=== PATIENT | female | born 1965 | race Caucasian/White ===

== ENCOUNTER 2020-03-13 14:14 | Outpatient (CLI) | payer OTHER, SELFPAY ==
--- NOTE | ~2020-03-13 | MM_ITS ---
EXAMINATION: MM screening cassandra BI w graham HISTORY: Screening mammogram TECHNIQUE: Craniocaudal and mediolateral oblique 3-D tomosynthesis images were obtained and synthetic 2-D images were generated. CAD analysis was submitted and interpreted. COMPARISON: 03/12/2017 diagnostic left digital mammogram and limited left breast ultrasound 03/04/2017, 04/16/2014 bilateral digital screening mammogram examinations BREAST PARENCHYMAL COMPOSITION: The breasts are heterogeneously dense, which may obscure small masses . FINDINGS: Previously reported 4 mm irregular mass in the posterior third of the upper outer quadrant of the left breast on 03/04/2017 and 03/20/2017 is no longer identified. There is history of interval left partial mastectomy and radiation treatment. There is no evidence of suspicious mass, calcification, or architectural distortion to suggest malign rosalba in either breast. There has been no suspicious interval change. IMPRESSION: 1. No mammographic evidence of malignancy. 2. Recommend routine screening mammography in one year. BI-RADS Category 1: Negative Reviewed, dictated and finalized at location A. ORMANCE ANALYST
== END 2020-03-13 14:15 | disposition home or self-care (01) ==
LOC: ANHIMG 14:26
PROVIDERS: PCP Nurse Practitioner Adult Health; Visit Provider Obstetrics & Gynecology
DX: Z12.31 Encounter for screening mammogram for malignant neoplasm of breast (principal)
CPT/HCPCS: 77063; 77067

== ENCOUNTER 2020-03-28 06:54 | Outpatient (NON) | payer OTHER, SELFPAY ==
[2020-03-28 19:42] LABS: SARS-CoV-2 RNA PCR Negative
== END 2020-03-28 06:55 ==
LOC: ANHCOVIDDT 06:56
PROVIDERS: PCP Nurse Practitioner Adult Health; Visit Provider Nurse Practitioner Adult Health
DX: Z20.822 Contact with and (suspected) exposure to COVID-19 (principal); R09.81 Nasal congestion
CPT/HCPCS: C9803; U0003

== ENCOUNTER → 2021-02-09 02:42 | Outpatient (CLI) | payer OTHER, SELFPAY ==
[2021-02-09 16:36] LABS: SARS-CoV-2 RNA PCR Negative
== END ==
PROVIDERS: PCP Nurse Practitioner Adult Health; Visit Provider Nurse Practitioner Adult Health
DX: R05.9 Cough, unspecified (principal); Z20.822 Contact with and (suspected) exposure to COVID-19
CPT/HCPCS: C9803; U0003; U0005

== ENCOUNTER 2021-04-12 14:11 | Outpatient (CLI) | payer OTHER, SELFPAY ==
--- NOTE | ~2021-04-12 | MM_ITS ---
EXAMINATION: MM screening cassandra BI w graham HISTORY: Screening TECHNIQUE: Craniocaudal and mediolateral oblique 3-D tomosynthesis images were obtained and synthetic 2-D images were generated. CAD analysis was submitted and interpreted. COMPARISON: Comparison to multiple prior studies sequentially, with oldest reviewed study dated 01/22. BREAST PARENCHYMAL COMPOSITION: The breasts are heterogeneously dense, which may obscure small masses . FINDINGS: There is no evidence of suspicious mass, calcification, or architectural distortion to sugg est malignancy in either breast. There has been no suspicious interval change. IMPRESSION: 1. No mammographic evidence of malignancy. 2. Recommend routine screening mammography in one year. BI-RADS Category 1: Negative Reviewed, dictated and finalized at location A. CULTURAL CONSULTANT
== END 2021-04-12 14:12 | disposition home or self-care (01) ==
LOC: ANHIMG 14:15
PROVIDERS: PCP Nurse Practitioner Adult Health; Visit Provider Obstetrics & Gynecology
DX: Z12.31 Encounter for screening mammogram for malignant neoplasm of breast (principal)
CPT/HCPCS: 77063; 77067

== ENCOUNTER 2022-04-19 09:55 | Outpatient (CLI) | payer OTHER, SELFPAY ==
--- NOTE | ~2022-04-19 | MM_ITS ---
EXAMINATION: MM screening cassandra BI w graham HISTORY: Screening TECHNIQUE: Craniocaudal and mediolateral oblique 3-D tomosynthesis images were obtained and synthetic 2-D images were generated. CAD analysis was submitted and interpreted. COMPARISON: Comparison to multiple prior studies sequentially, with oldest reviewed study dated 04/16. BREAST PARENCHYMAL COMPOSITION: There are scattered areas of fibroglandular density. FINDINGS: There is no evidence of suspicious mass, calcification, or architectural distortion to sugg est malignancy in either breast. There has been no suspicious interval change. IMPRESSION: 1. No mammographic evidence of malignancy. 2. Recommend routine screening mammography in one year. BI-RADS Category 1: Negative Reviewed, dictated and finalized at location A. N STOCK WASHER
== END 2022-04-19 09:56 | disposition home or self-care (01) ==
LOC: ANHIMG 10:00
PROVIDERS: PCP Nurse Practitioner Family; Visit Provider Internal Medicine Medical Oncology
DX: Z12.31 Encounter for screening mammogram for malignant neoplasm of breast (principal)
CPT/HCPCS: 77063; 77067

== ENCOUNTER 2023-01-10 17:05 | Emergency (ER) | payer OTHER, SELFPAY ==
[2023-01-10 17:12] VITALS: BP 163/98; PULSE 93; RESP 18; TEMP 36.2; O2SAT 97
[2023-01-10 17:32] LABS: Basophils Absolute Auto 0.1 K/mm3 (0.0-0.1); Basophils Percent Auto 0.7 % (0.2-1.2); Eosinophils Absolute Auto 0.1 K/mm3 (0-0.3); Eosinophils Percent Auto 1.2 % (0-4.4); Hematocrit 42.2 % (37.0-47.0); Hemoglobin 14.1 g/dL (12.0-15.0); Immature Granulocyte Absolute 0.04 K/mm3 (0.00-0.031); Immature Granulocyte Percent A 0.4 % (0-0.5); Lymphocytes Percent Auto 32.3 % (18.3-44.2); Mean Corpuscular HGB Conc 33.4 g/dl (32-36); Mean Corpuscular Hemoglobin 30.3 pg (26-34); Mean Corpuscular Volume 90.8 fl (80-100); Mean Platelet Volume 10.2 fl (7.4-10.4); Monocytes Absolute Auto 0.6 K/mm3 (0.1-0.6); Monocytes Percent Auto 6.3 % (2.6-8.5); Neutrophils Absolute Auto 5.3 K/mm3 (1.3-6.7); Neutrophils Percent Auto 59.1 % (45.5-73.1); Platelet Count Result 256 k/mm3 (150-375); Red Blood Count 4.65 M/mm3 (4.2-5.4); Red Cell Distribution Width 12.8 % (11.5-14.5)
[2023-01-10 17:44] LABS: Alanine Aminotransferase 23 U/L (6-35); Albumin Level 4.8 g/dL (3.5-5.1); Alkaline Phosphatase 83 U/L (38-126); Anion Gap 8 mmol/L (8-16); Aspartate Amino Transferase 27 U/L (14-36); Bilirubin,Total 1.7 mg/dL (0.2-1.3); Blood Urea Nitrogen 17 mg/dL (7-17); Carbon Dioxide 23 mmol/L (22-30); Chloride 107 mmol/L (98-107); Estimated CRCL calculation 70 ml/min; Estimated Glomerular Filt Rate > 60; Glucose 102 mg/dL (65-110); Lipase 79 U/L (23-300); Potassium 3.9 mmol/L (3.4-5.0); Sodium 138 mmol/L (137-145)
--- NOTE | 2023-01-10 23:04 | ED.GENADULT ---
HPI - General Adult General Chief complaint: Abdominal Pain Stated complaint: diverticulitis Time Seen by Provider: 01/10/23 22:45 History of Present Illness HPI narrative: Patient 57-year-old female who presents the emergency department with chief complaint of left lower quadrant abdominal pain. Patient reports she has prior history of diverticulitis reports that she has had surgery for this before and reports that she has had episodes since her surgery. The patient reports that she started having discomfort in the left lower quadrant and reports that this feels exactly like her previous episodes. The patient reports she called her primary care doctor trying to get treatments but they had changed and the patient subsequently was recommended to come to the emergency department. Related Data Home Medications Medication Instructions Recorded Confirmed aspirin 81 mg tablet,delayed 81 mg PO DAILY 10/07/22 10/07/22 release calcium carbonate 600 mg calcium 600 mg PO DAILY 10/07/22 10/07/22 (1,500 mg) tablet (Calcium) cholecalciferol (vitamin D3) 50 50 mcg PO DAILY 10/07/22 10/07/22 mcg (2,000 unit) capsule d-mannose 500 mg capsule mg PO 10/07/22 10/07/22 fluticasone propionate 50 1 spray intranasal DAILY 10/07/22 10/07/22 mcg/actuation nasal spray,suspension (Allergy Relief (fluticasone)) rosuvastatin 20 mg tablet 20 mg PO DAILY 10/07/22 10/07/22 Allergies Allergy/AdvReac Type Severity Reaction Status Date / Time adhesive tape Allergy Severe RASH Verified 01/10/23 23:02 tetracycline Allergy Unknown Unknown Verified 01/10/23 23:02 amoxicillin AdvReac Severe Nausea and Verified 01/10/23 23:02 Vomiting clavulanic acid AdvReac Severe Nausea and Verified 01/10/23 23:02 Vomiting MINOCYCLINE HCL Allergy Severe HIVES AND Uncoded 01/10/23 23:02 SOB Review of Systems Review of Systems: A 10 system review of systems was completed on the patient and is negative except for what is stated in the HPI. Nursing and ancillary documentation was reviewed. [facility] Past Medical History Medical History Allergies Anxiety CAD (coronary artery disease) Cancer Diverticulosis Encounter to establish care Frequent UTI Hx of breast cancer Hyperlipidemia PVC (premature ventricular contraction) Tobacco abuse Vitamin D deficiency Family History Family History Father Asthma Diabetes mellitus Hypertension Heart disease Mother Alcoholism Asthma Hypertension Heart disease Thyroid disorder Sibling Alcoholism Asthma Heart disease Hypertension Anxiety Depression Thyroid disorder Grandparent Heart disease Social History Social History Smoking status: Light tobacco smoker Tobacco type: cigarettes Alcohol intake: never Substance use: never Substance use type: does not use Current Housing: Decline to Answer Concerned About Future Housing: Decline to Answer Difficulty Paying Gas/Electric Bills: Decline to Answer Difficulty Paying for Meds: Decline to Answer Currently Unemployed: Decline to Answer Education: Decline to Answer Difficulty w/ Childcare or Family Care: Decline to Answer Exam Narrative: GENERAL: Well-appearing, well-nourished, and in no acute distress. HEAD: Normocephalic, atraumatic. EYES: PERRLA and EOMI. ENT: Nares clear, no rhinorrhea or epistaxis. Mucous membranes moist. NECK: Supple. CHEST: Clear to auscultation. No respiratory distress. HEART: Regular rate and rhythm. No murmur heard. Normal peripheral pulses. ABDOMEN: Soft, mild tenderness to palpation the left lower quadrant, nondistended, normal active bowel sounds. EXTREMITIES: Normal range of motion. No edema. SKIN: Warm, dry, no rash. NEURO: No focal deficits. Alert and oriented x3. PSYCH: Janice
[2023-01-10] MEDS: CIPROFLOXACIN 500 MG TAB PO (23:12)
[2023-01-10] MEDS: metroNIDAZOLE 250 MG TABLET 500 MG PO (23:12)
[2023-01-10] MEDS: KETOROLAC 30 MG/ML VIAL (*BKC) IM (23:12)
== END 2023-01-10 23:19 | disposition home or self-care (01) ==
PROVIDERS: Emergency Medicine; Emergency Provider Emergency Medicine; PCP Nurse Practitioner Family
DX: K57.92 Diverticulitis of intestine, part unspecified, without perforation or abscess without bleeding (principal); I25.10 Atherosclerotic heart disease of native coronary artery without angina pectoris; E78.5 Hyperlipidemia, unspecified; F17.200 Nicotine dependence, unspecified, uncomplicated; Z85.3 Personal history of malignant neoplasm of breast
CPT/HCPCS: 36415; 80053; 83690; 85025; 96372; 99283; A9270; J1885

== ENCOUNTER 2023-01-20 10:45 | Emergency (ER) | payer OTHER, SELFPAY ==
[2023-01-20] VITALS (9 sets, daily range): BP systolic 132–158; BP diastolic 64–83; PULSE 78–91; RESP 12–24; TEMP 36.4; O2SAT 94–100
--- NOTE | ~2023-01-20 | CT_ITS ---
EXAMINATION: CT abdomen pelvis w con DATE: 01/20/2023 13:38 INDICATION: Left lower quadrant abdominal pain. TECHNIQUE: Computed tomography (CT) of the abdomen and pelvis was performed with 100 mL Omnipaque 350 intravenous contrast. Automated exposure control and iterative reconstruction technique were employe d. The dose-length product was 332.30 mGy-cm. COMPARISON: CT abdomen and pelvis 01/07/2018 FINDINGS: The visualized portions of the lung bases demonstrate mild atelectasis. No pleural effusion . The heart size is normal. No pericardial effusion. The liver is normal. Calcifications in the splee n are consistent with old granulomatous disease. There are changes of cholecystectomy. The pancreas, adrenal glands, and right kidney are normal. There is a 5 mm cyst in left kidney. There is diverticul osis of the colon without evidence of diverticulitis. There are no dilated loops of bowel. The append ix is normal. There are no pathologically enlarged lymph nodes. There is no free intraperitoneal flui d. Aortic atherosclerosis is noted. There is moderate thoracic and lumbar spondylosis. IMPRESSION: 1. No etiology for the patient's symptoms. Reviewed, dictated and finalized at location E.
[2023-01-20 11:17] LABS: Basophils Absolute Auto 0.1 K/mm3 (0.0-0.1); Basophils Percent Auto 0.5 % (0.2-1.2); Eosinophils Absolute Auto 0.1 K/mm3 (0-0.3); Eosinophils Percent Auto 0.4 % (0-4.4); Hematocrit 43.4 % (37.0-47.0); Hemoglobin 14.2 g/dL (12.0-15.0); Immature Granulocyte Absolute 0.06 K/mm3 (0.00-0.031); Immature Granulocyte Percent A 0.5 % (0-0.5); Lymphocytes Absolute Auto 2.46 K/mm3 (0.9-3.2); Lymphocytes Percent Auto 20.7 % (18.3-44.2); Mean Corpuscular HGB Conc 32.7 g/dl (32-36); Mean Corpuscular Hemoglobin 30.7 pg (26-34); Mean Corpuscular Volume 93.7 fl (80-100); Mean Platelet Volume 10.5 fl (7.4-10.4); Monocytes Absolute Auto 0.5 K/mm3 (0.1-0.6); Monocytes Percent Auto 4.3 % (2.6-8.5); Neutrophils Absolute Auto 8.7 K/mm3 (1.3-6.7); Neutrophils Percent Auto 73.6 % (45.5-73.1); Platelet Count Result 254 k/mm3 (150-375); Red Blood Count 4.63 M/mm3 (4.2-5.4); White Blood Count 11.9 K/mm3 (4.5-10.0)
[2023-01-20 11:32] LABS: Alanine Aminotransferase 33 U/L (6-35); Albumin Level 4.4 g/dL (3.5-5.1); Alkaline Phosphatase 73 U/L (38-126); Anion Gap 5 mmol/L (8-16); Aspartate Amino Transferase 39 U/L (14-36); Blood Urea Nitrogen 12 mg/dL (7-17); Calcium 8.9 mg/dL (8.4-10.2); Carbon Dioxide 24 mmol/L (22-30); Chloride 108 mmol/L (98-107); Estimated CRCL calculation 62 ml/min; Estimated Glomerular Filt Rate > 60; Glucose 109 mg/dL (65-110); Lipase 61 U/L (23-300); Potassium 3.9 mmol/L (3.4-5.0); Sodium 137 mmol/L (137-145)
[2023-01-20 11:58] LABS: Appearance Urine Clear (Clear); Bacteria Urine None Seen /hpf; Bilirubin Urine Negative (Negative); Blood Urine Trace (Negative); Color Urine Yellow (Yellow); Glucose Urine UA Negative (Negative); Ketones Urine Negative (Negative); Leukocyte Esterase Ur 1+ LEU/UL (Negative); Nitrate Urine Negative (Negative); Non Pathogenic Casts 0-2; Protein Urine Negative (Negative); Specific Grav Ur 1.018 (1.001-1.035); Squamous Epithelial Cell Urine Few /hpf (Few); Urobilinogen Urine 0.2 mg/dL (<2.0); WBC Urine 0-5 /hpf; pH Urine 5.5 (5.0-9.0)
[2023-01-20 12:00] LABS: Add Urine Microscopic? YES
--- NOTE | 2023-01-20 12:11 | ED.ABDPAIN ---
HPI - Abdominal Pain General Chief Complaint: Abdominal Pain Stated Complaint: abd pain Time Seen by Provider: 01/20/23 12:06 Source: patient Mode of arrival: ambulatory History of Present Illness HPI narrative: 57 years old white female drove herself to the emergency room complaining of left lower quadrant pain started 10 days ago and gradually getting better. Came to our emergency room at that time and was diagnosed with diverticulitis. Patient could not do CAT scan at that time. Patient reports intermittent nausea. She denies any fever, chills, vomiting, diarrhea, constipation. Patient denies aggravating or relieving factors. Related Data Home Medications Medication Instructions Recorded Confirmed aspirin 81 mg tablet,delayed 81 mg PO DAILY 10/07/22 10/07/22 release calcium carbonate 600 mg calcium 600 mg PO DAILY 10/07/22 10/07/22 (1,500 mg) tablet (Calcium) cholecalciferol (vitamin D3) 50 50 mcg PO DAILY 10/07/22 10/07/22 mcg (2,000 unit) capsule d-mannose 500 mg capsule mg PO 10/07/22 10/07/22 fluticasone propionate 50 1 spray intranasal DAILY 10/07/22 10/07/22 mcg/actuation nasal spray,suspension (Allergy Relief (fluticasone)) rosuvastatin 20 mg tablet 20 mg PO DAILY 10/07/22 10/07/22 Allergies Allergy/AdvReac Type Severity Reaction Status Date / Time adhesive tape Allergy Severe RASH Verified 01/20/23 11:41 minocycline Allergy Severe Hives and Verified 01/20/23 12:46 SOB tetracycline Allergy Unknown Unknown Verified 01/20/23 11:41 amoxicillin AdvReac Severe Nausea and Verified 01/20/23 11:41 Vomiting clavulanic acid AdvReac Severe Nausea and Verified 01/20/23 11:41 Vomiting Review of Systems Review of Systems: All systems reviewed & are unremarkable except as noted in HPI and below PMFSH Past Medical History Medical History Allergies Anxiety CAD (coronary artery disease) Cancer Diverticulosis Encounter to establish care Frequent UTI Hx of breast cancer Hyperlipidemia PVC (premature ventricular contraction) Tobacco abuse Vitamin D deficiency Family History Family History Father Asthma Diabetes mellitus Hypertension Heart disease Mother Alcoholism Asthma Hypertension Heart disease Thyroid disorder Sibling Alcoholism Asthma Heart disease Hypertension Anxiety Depression Thyroid disorder Grandparent Heart disease Social History Social History Smoking status: Light tobacco smoker Tobacco type: cigarettes Alcohol intake: never Substance use: never Substance use type: does not use Current Housing: Decline to Answer Concerned About Future Housing: Decline to Answer Difficulty Paying Gas/Electric Bills: Decline to Answer Difficulty Paying for Meds: Decline to Answer Currently Unemployed: Decline to Answer Education: Decline to Answer Difficulty w/ Childcare or Family Care: Decline to Answer Exam Narrative: General appearance: Well-developed, well-nourished Skin: Normal color Head: Normocephalic, nontraumatic Eyes: Clear conjunctiva ENT: Oropharynx normal, ears normal, nose normal Neck: Supple, nontender Chest and respiratory: Airway patent, no respiratory distress, no accessory muscle use Heart: Regular rate/rhythm Abdomen: Soft, mild tenderness left lower quadrant,, no organomegaly, quiet bowel sounds Vascular: Normal peripheral pulses, normal capillary refill. Musculoskeletal: Normal range of motion, nontender back Neurologic: Alert and oriented ?3, MODEL AND DYE PERSON is normal as tested, no gross motor deficit
[2023-01-20] MEDS: SODIUM CHLORIDE 0.9% IV 1,000 ML 999 ML IV CONT (13:08)
[2023-01-20 13:31] LABS: Need Manual Microscopic Reviewed
== END 2023-01-20 14:54 | disposition home or self-care (01) ==
PROVIDERS: Preventive Medicine Aerospace Medicine; Emergency Provider Emergency Medicine; PCP Nurse Practitioner Family
DX: R10.32 Left lower quadrant pain (principal); I25.10 Atherosclerotic heart disease of native coronary artery without angina pectoris; E78.5 Hyperlipidemia, unspecified; E55.9 Vitamin D deficiency, unspecified; F41.9 Anxiety disorder, unspecified; Z85.3 Personal history of malignant neoplasm of breast; F17.210 Nicotine dependence, cigarettes, uncomplicated; Z79.82 Long term (current) use of aspirin
CPT/HCPCS: 36415; 74177; 80053; 81001; 83690; 85025; 96360; 96361; 99284; J7030; Q9967

== ENCOUNTER 2023-04-21 09:51 | Outpatient (CLI) | payer OTHER, SELFPAY ==
--- NOTE | ~2023-04-21 | MM_ITS ---
EXAMINATION: MM screening cassandra BI w graham HISTORY: Screening TECHNIQUE: Craniocaudal and mediolateral oblique 3-D tomosynthesis images were obtained and synthetic 2-D images were generated. CAD analysis was submitted and interpreted. COMPARISON: Comparison to multiple prior studies sequentially, with oldest reviewed study dated 04/16. BREAST PARENCHYMAL COMPOSITION: The breasts are heterogeneously dense, which may obscure small masses FINDINGS: There is no evidence of suspicious mass, calcification, or architectural distortion to sugg est malignancy in either breast. There has been no suspicious interval change. IMPRESSION: 1. No mammographic evidence of malignancy. 2. Recommend routine screening mammography in one year. BI-RADS Category 1: Negative Reviewed, dictated and finalized at location A. ETCHER
== END 2023-04-21 09:52 | disposition home or self-care (01) ==
LOC: ANHIMG 09:54
PROVIDERS: PCP Nurse Practitioner Family; Visit Provider Obstetrics & Gynecology
DX: Z12.31 Encounter for screening mammogram for malignant neoplasm of breast (principal)
CPT/HCPCS: 77063; 77067

== ENCOUNTER 2023-05-26 00:18 | Day surgery (SDC) | payer OTHER, SELFPAY ==
[2023-03-19 13:15] VITALS: BMI 25.7
--- NOTE | 2023-04-14 09:46 | SUR.PREOP ---
Patient called regarding upcoming procedure. Message left on pt's voicemail regarding appointment times.
[2023-05-06 11:41] VITALS: BMI 25.7
--- NOTE | 2023-05-23 12:48 | SUR.PREOP ---
Patient called regarding upcoming procedure. Reviewed preop instructions, appointment times, and procedure prep.
[2023-05-26 09:24] VITALS: BP 120/75; PULSE 88; RESP 18; TEMP 36.1; O2SAT 98
[2023-05-26] MEDS: LACTATED RINGERS 1,000 ML 150 ML IV CONT (09:40)
--- NOTE | 2023-05-26 10:01 | WPDANESEPPF ---
Anes - Initial Pre Proc Eval Procedure: Operation Date: 05/26/23 10:30 Proposed Procedures p Screening Colonoscopy - Marvin Giron MD Date/Time: 05/26/23 10:01 Surgeon: Marvin Giron MD Pre Op Diagnosis: neoplasm screening Patient Data Age: 57 Gender: F Height: 1.6 m Weight: 65.9 kg Last Vital Signs Temp 97 F L 05/26/23 09:24 Pulse 88 05/26/23 09:24 Resp 18 05/26/23 09:24 BP 120/75 05/26/23 09:24 Pulse Ox 98 05/26/23 09:24 O2 Del Method Room Air 05/26/23 09:24 Allergies Allergy/AdvReac Type Severity Reaction Status Date / Time adhesive tape Allergy Severe RASH Verified 05/26/23 09:22 minocycline Allergy Severe Hives and Verified 05/26/23 09:22 SOB tetracycline Allergy Unknown Unknown Verified 05/26/23 09:22 amoxicillin AdvReac Severe Nausea and Verified 05/26/23 09:22 Vomiting clavulanic acid AdvReac Severe Nausea and Verified 05/26/23 09:22 Vomiting Home Medications Medication Instructions Recorded Confirmed Type aspirin 81 mg tablet,delayed 81 mg PO DAILY 10/07/22 05/06/23 History release calcium carbonate 600 mg calcium 600 mg PO DAILY 10/07/22 05/06/23 History (1,500 mg) tablet (Calcium) cholecalciferol (vitamin D3) 50 50 mcg PO DAILY 10/07/22 05/06/23 History mcg (2,000 unit) capsule rosuvastatin 20 mg tablet 20 mg PO DAILY 10/07/22 05/06/23 History clotrimazole 10 mg bobby 10 mg mucous membrane .5x/day #70 03/28/23 05/06/23 Rx tabs fluticasone propionate 50 1 spray intranasal BID #16 grams 04/07/23 05/06/23 Rx mcg/actuation nasal spray,suspension (Allergy Relief (fluticasone)) Patient hx anesthesia problems: none Family hx anesthesia problems: none Results Review: All pre-operative results and documents have been reviewed as part of the pre-operative evaluation. [facility] Past Medical History Medical History (Updated 01/23/23 @ 16:30 by Amalia Gunn NP) Allergies Anxiety CAD (coronary artery disease) Cancer Diverticulosis Encounter to establish care Frequent UTI Hx of breast cancer Hyperlipidemia PVC (premature ventricular contraction) Thrush, oral Tobacco abuse Vitamin D deficiency Family History Family History Father Asthma Diabetes mellitus Hypertension Heart disease Mother Alcoholism Asthma Hypertension Heart disease Thyroid disorder Sibling Alcoholism Asthma Heart disease Hypertension Anxiety Depression Thyroid disorder Grandparent Heart disease Social History Social History (Updated 04/07/23 @ 10:55 by Jennifer Reid MA) Smoking status: Light tobacco smoker Tobacco type: cigarettes Alcohol intake: never Substance use: never Substance use type: does not use Current Housing: Decline to Answer Concerned About Future Housing: Decline to Answer Difficulty Paying Gas/Electric Bills: Decline to Answer Difficulty Paying for Meds: Decline to Answer Currently Unemployed: Decline to Answer Education: Decline to Answer Difficulty w/ Childcare or Family Care: Decline to Answer Living arrangements: with family Spiritual care concerns: No Anes - Eval Final PreProcedure Day of Procedure 05/26/23 10:01 Patient weight: normal Heart: regular rate and rhythm Lungs: clear to auscultation Airway: Mallampati scale class II Neurological: alert and oriented Last oral intake: >/= 8 hours ASA classification: III Emergent: no Anesthetic plan: proceed Anesthesia type and monitoring: general GIVS and standard monitoring Results Review: All pre-operative results and documents have been reviewed as part of the pre-operative evaluation. Informed Consent: The patient's anesthetic plan and its attendant risks and benefits were discussed with the patient/family/POA. Questions were solicited and answers provided to the satisfaction of the patient/family/POA.
--- NOTE | 2023-05-26 10:08 | PM.HPGS ---
History of Present Illness History of Present Illness Consent: Risks, benefits, and alternatives have been discussed and questions answered. Patient agrees to proceed with procedure. Chief complaint: neoplasm screening Narrative: Carolyn Mann is a 57 year old female here for colonoscopy, last one 2010, also had colon surgery after diverticulitis Review of Systems Constitutional: Constitutional: Denies headache(s) and Denies weakness Eyes: Eyes: Denies blurry vision ENT: Reports Normal hearing present, Denies headache(s) and Denies neck pain Cardiovascular: Cardiovascular: Denies chest pain and Denies dyspnea Respiratory: Respiratory: Denies dyspnea Gastrointestinal: Gastrointestinal: Reports no additional gastrointestinal complaints Genitourinary: Genitourinary: Denies dysuria Musculoskeletal: Musculoskeletal: Denies neck pain Integumentary/Breasts: Skin/Breast: Denies dry skin Neurologic: Reports Normal hearing present, Denies headache(s) and Denies weakness Psychiatric: Psychiatric: Denies anxiety Endocrine: Endocrine: Denies change in body appearance Hematologic/Lymphatic: Hematologic/Lymphatic: Denies easy bleeding Allergic/Immunologic: Allergic/Immunologic: Denies urticaria PMFSH Past Medical History Medical History (Updated 05/26/23 @ 10:09 by Marvin Giron MD) Allergies Anxiety CAD (coronary artery disease) Cancer Colon cancer screening Diverticulosis Encounter to establish care Frequent UTI Hx of breast cancer Hyperlipidemia PVC (premature ventricular contraction) Thrush, oral Tobacco abuse Vitamin D deficiency Family History Family History Father Asthma Diabetes mellitus Hypertension Heart disease Mother Alcoholism Asthma Hypertension Heart disease Thyroid disorder Sibling Alcoholism Asthma Heart disease Hypertension Anxiety Depression Thyroid disorder Grandparent Heart disease Social History Social History (Updated 04/07/23 @ 10:55 by Jennifer Reid MA) Smoking status: Light tobacco smoker Tobacco type: cigarettes Alcohol intake: never Substance use: never Substance use type: does not use Current Housing: Decline to Answer Concerned About Future Housing: Decline to Answer Difficulty Paying Gas/Electric Bills: Decline to Answer Difficulty Paying for Meds: Decline to Answer Currently Unemployed: Decline to Answer Education: Decline to Answer Difficulty w/ Childcare or Family Care: Decline to Answer Living arrangements: with family Spiritual care concerns: No Meds Home Medications and Allergies Home Medications Medication Instructions Recorded Confirmed Type aspirin 81 mg tablet,delayed 81 mg PO DAILY 10/07/22 05/06/23 History release calcium carbonate 600 mg calcium 600 mg PO DAILY 10/07/22 05/06/23 History (1,500 mg) tablet (Calcium) cholecalciferol (vitamin D3) 50 50 mcg PO DAILY 10/07/22 05/06/23 History mcg (2,000 unit) capsule rosuvastatin 20 mg tablet 20 mg PO DAILY 10/07/22 05/06/23 History clotrimazole 10 mg bobby 10 mg mucous membrane .5x/day #70 03/28/23 05/06/23 Rx tabs fluticasone propionate 50 1 spray intranasal BID #16 grams 04/07/23 05/06/23 Rx mcg/actuation nasal spray,suspension (Allergy Relief (fluticasone)) Allergies Allergy/AdvReac Type Severity Reaction Status Date / Time adhesive tape Allergy Severe RASH Verified 05/26/23 09:22 minocycline Allergy Severe Hives and Verified 05/26/23 09:22 SOB tetracycline Allergy Unknown Unknown Verified 05/26/23 09:22 amoxicillin AdvReac Severe Nausea and Verified 05/26/23 09:22 Vomiting clavulanic acid AdvReac Severe Nausea and Verified 05/26/23 09:22 Vomiting Vital Signs Vital Signs - 24 hr 05/26/23 09:24 Temperature 97 F L Pulse Rate 88 Respiratory Rate 18 Blood Pressure 120/75 Pulse Oximetry 98 Oxygen Delivery Room Air
[2023-05-26 10:27] VITALS: BP 108/69; PULSE 74; RESP 20; O2SAT 96
[2023-05-26 10:37] VITALS: BP 140/89; PULSE 72; RESP 18; O2SAT 99
[2023-05-26 10:47] VITALS: BP 144/85; PULSE 73; RESP 14; O2SAT 99
== END 2023-05-26 10:57 | disposition home or self-care (01) ==
PROVIDERS: PCP Nurse Practitioner Family; Visit Provider Internal Medicine Gastroenterology
PROC: 0DJD8ZZ Inspection of Lower Intestinal Tract, Via Natural or Artificial Opening Endoscopic (ICD-10-PCS; CPT 45378; principal; 2023-05-26 10:30)
DX: Z12.11 Encounter for screening for malignant neoplasm of colon (principal); D12.2 Benign neoplasm of ascending colon; K64.8 Other hemorrhoids; K57.30 Diverticulosis of large intestine without perforation or abscess without bleeding; E78.5 Hyperlipidemia, unspecified; F41.9 Anxiety disorder, unspecified; E55.9 Vitamin D deficiency, unspecified; F17.210 Nicotine dependence, cigarettes, uncomplicated; Z86.79 Personal history of other diseases of the circulatory system; Z85.3 Personal history of malignant neoplasm of breast; Z82.49 Family history of ischemic heart disease and other diseases of the circulatory system; Z79.82 Long term (current) use of aspirin
CPT/HCPCS: 45385; 88305; J2704; J7120

== ENCOUNTER 2024-06-18 07:04 | Outpatient (CLI) | payer OTHER, SELFPAY ==
--- NOTE | ~2024-06-18 | MM_ITS ---
EXAMINATION: MM screening [facility] HISTORY: Screening TECHNIQUE: Craniocaudal and mediolateral oblique 3-D tomosynthesis images were obtained and synthetic 2-D images were generated. CAD analysis was submitted and interpreted. COMPARISON: 04/21/2023 and dating back to 03/13/2020 BREAST PARENCHYMAL COMPOSITION: The breasts are heterogeneously dense, which may obscure small masses . FINDINGS: Punctate calcifications are detected bilaterally, stable and benign in appearance. Stable parenchymal pattern without suspicious microcalcifications, architectural distortion, discrete masses or significant asymmetry. IMPRESSION: 1. No mammographic evidence of malignancy. 2. Recommend routine screening mammography in one year. BI-RADS Category 2: Benign finding(s). Reviewed, dictated and finalized at location A.
--- OUTSIDE RECORDS SUMMARY | 2024-06-18 07:11 | XMS_ITS | Referral Summary ---
Author Organization [facility] [address] Address [address] [place] [address] Care Team Providers Care Newsperson Name Role Phone Aft, Latrice Marcum MD PhD Unavailable Maury Garcia MD Unavailable [phone] Tiffanie Wooten REPLENISHMENT ANALYST Unavailable [phone] Amalia Gunn NP Primary Care Provider [phone] Allergies Active Allergy Reactions Criticality Noted Date Comments Amoxicillin Vomiting Low 06/26/2017 Amoxicillin-Pot Clavulanate Vomiting Low 03/12/20 19 Cetirizine Unknown 03/12/2019 Minocycline Hives,Shortness of breath High 8 Medications fluticasone (FLONASE) 50 mcg/actuation nasal spray Administer 1 spray into each nostril 2 (two) times a day Active calcium carbonate (CALCIUM 600 ORAL) Take 1,200 mg by mouth daily. Active cholecalciferol (VITAMIN D-3) 2,000 unit capsule Take 1 capsule (2,000 Units total) by mouth daily Active aspirin (ADULT LOW DOSE ASPIRIN) 81 mg tablet Take 1 tablet (81 mg total) by mouth daily. 8 Active rosuvastatin (CRESTOR) 20 mg tablet Take 1 tablet (20 mg total) by mouth daily 90 tablet 3 4 Active Active Problems Problem Noted Date Diagnosed Date Anxiety disorder 10/14/2019 Diverticular disease 10/14/2019 Mixed hyperlipidemia 10/14/2019 Seasonal allergies 10/14/2019 Shoulder joint pain 10/14/2019 Coronary artery disease invo lving kashia coronary artery of kashia heart without angina pectoris 05/06/2018 History of breast cancer 03/12/2018 Osteoporosis 02/23/2018 Osteopenia of multiple sites 01/09/2018 Abnormal stress test 01/02/2018 VILLAR (dyspnea on exertion) 12/11/2017 Breast skin changes 08/04/2017 Malignant neoplasm of upper- outer quadrant of left breast in female, estrogen receptor positive 07/16/2017 Cancer Staging:Pathologic stage from 05/22/2017:Stage IA(pT1a(2), pN0(sn), cM0, G2, ER: Positive, [place]: Positive, HER2: Negative) - Signed by Valdez Stauffer MD on 01/11/2018 Clinical: Unsigned Pathologic: Unsigned assisted (current) use of aromatase inhibitors 07/16/2017 Palpitations 06/26/2017 Tachycardia 06/26/2017 Symptomatic PVCs 06/26/2017 Smoker 06/26/2017 Allergic rhinitis 05/09/2017 Invasive carcinoma of breast 04/08/2017 Resolved Problems Problem Noted Date Diagnosed Date Resolved Date Dyslipidemia 06/26/2017 05/24/2021 Immunizations Immunization Administration Dates Next Due Influenza, Quadrivalent, Bushra l Culture-based MDCK, Preservative Free, Antibiotic Free, Intramuscular 04/13/2021,01/15/2019 Influenza, Quadrivalent, Spl it, Intramuscular 04/08/2017,02/13/2015 Influenza, Quadrivalent, Spl it, Preservative Free, Intramuscular 03/27/2020,02/23/2018,04/09/2017 Influenza, Trivalent, IM (MDV) 01/26/2014 Influenza, Trivalent, Preser vative Free, Intramuscular 01/04/2013 Influenza, Unspecified 04/11/2017 Pneumococcal Conjugate PCV 13 04/20/2015 Pneumococcal Conjugate, Unspecified 01/10/2016 Pneumococcal Polysaccharide PPV23 07/03/2015 Social History Tobacco Use Types Packs/Day Years Used Date Smoking Tobacco: Some Days Cigarettes Last attempted to quit: 2018 Smokeless Tobacco: Never Tobacco Cessation:Ready to Q uit: Yes; Counseling Given: Not Answered Alcohol Use Standard Drinks/Week Comments No 0 (1 standard drink = 0.6 oz pur e alcohol) Personal Safety Answer Date Recorded Getting School Help Needed Not on file 04/03 Comments No Sex and Gender Information Value Date Recorded Sex Assigned at Not on file Legal Sex Female 12:01 PM CHILD STUDY TEAM DIRECTOR Gender Identity Not on file Sexual Orientation Not on file Last Filed Vital Signs Vital Sign Reading Time Taken Comments Blood Pressure 110/70 06/16/2023 7:50 AM CDT Pulse 100 06/16/2023 7:50 AM CDT Temperature 37.1 C (98.8 F) 04/30/2022 10:13 AM CHILD STUDY TEAM DIRECTOR Respiratory Rate 16 04/30/2022 10:13 AM CHILD STUDY TEAM DIRECTOR Oxygen Saturation 95% 06/16/2023 7:50 AM CDT Inhaled Oxygen Concentration - - Weight 67.8 kg (149 lb 6.4 oz) 06/16/2023 7:50 A M CDT Height 160 cm (5' 3 ) 06/16/2023 7:50 AM CDT Body Mass Index 26.47 06/16/2023 7:50 AM CDT Plan of Treatment Not on file Medical Devices Implanted Type Area Superintendent Drivers Device Identifier Shelf Expiration Date Model / Serial / Lot Titanium Neck Plate-10/14/2012 Implanted:10/14 (Quantity not on file) Cervical-Mery mbar Spine Titanium Left Foot Screws- 8 Implanted:10/14 (Quantity not on file) Left: Foot Procedures Procedure Name Priority Date/Time Associated Diagnosis Comments DIAGNOSTIC MAMMOGRAM BILATERAL W GAURANG Schedule Routine, Read Routine (OP Routine) 03/12/2019 10:35 AM CHILD STUDY TEAM DIRECTOR Encounter for screening for malignant neoplasm of breast from Last 3 Months or Most Recently Relevant to Health Maintenance Results * Diagnostic Mammogram Bilateral W Gaurang (03/12/2019 10:35 AM CHILD STUDY TEAM DIRECTOR) Anatomical Region Laterality Modality Breast Bilateral Mammography 03/12/2019 11:4 5 AM CHILD STUDY TEAM DIRECTOR Impressions 03/12/2019 12:12 PM CHILD STUDY TEAM DIRECTOR No suspicious abnormality in either breast. Annual diagnostic mammogram is recommended. OVERALL FINAL ASSESSMENT: BI-RADS Category 2: Benign. Annual diagnostic mammography is recommended. Dictated by: Meir Sharad Perfecto, M.D. The radiology attending physician has personally reviewed this study, and had reviewed and/or edited this written report and agrees with it. Electronically signed by: BEVERLY DEY MD Narrative 03/12/2019 12:12 PM CHILD STUDY TEAM DIRECTOR EXAMINATION: BILATERAL DIGITAL DIAGNOSTIC MAMMOGRAM INCLUDING CAD AND BILATERAL DIGITAL BREAST TOMOSYNTHESIS HISTORY: 53-year-old female with multifocal invasive ductal carcinoma status post partial left mastectomy 05/22/2017 with adjuvant radiation and hormone therapy. COMPARISON: 03/11/2018 TECHNIQUE: Full field digital mammographic views of BOTH breasts were performed, including computer aided detection (CAD) and BILATERAL digital breast tomosynthesis (DBT). BREAST PARENCHYMAL COMPOSITION: The breasts are extremely dense, which lowers the sensitivity of mammography. MAMMOGRAM FINDINGS: Post breast conservation therapy changes are noted in the left breast. There is no suspicious abnormality in the right breast. Procedure Note Beverly Dey MD - 03/12/2019 EXAMINATION: BILATERAL DIGITAL DIAGNOSTIC MAMMOGRAM INCLUDING CAD AND BILATERAL DIGITAL BREAST TOMOSYNTHESIS HISTORY: 53-year-old female with multifocal invasive ductal carcinoma status post partial left mastectomy 05/22/2017 with adjuvant radiation and hormone therapy. COMPARISON: 03/11/2018 TECHNIQUE: Full field digital mammographic views of BOTH breasts were performed, including computer aided detection (CAD) and BILATERAL digital breast tomosynthesis (DBT). BREAST PARENCHYMAL COMPOSITION: The breasts are extremely dense, which lowers the sensitivity of mammography. MAMMOGRAM FINDINGS: Post breast conservation therapy changes are noted in the left breast. There is no suspicious abnormality in the right breast. IMPRESSION: No suspicious abnormality in either breast. Annual diagnostic mammogram is recommended. OVERALL FINAL ASSESSMENT: BI-RADS Category 2: Benign. Annual diagnostic mammography is recommended. Dictated by: Meir Grove M.D. The radiology attending physician has personally reviewed this study, and had reviewed and/or edited this written report and agrees with it. Electronically signed by: BEVERLY DEY MD Vandana Bonner NITROGLYCERIN NEUTRALIZER IMG MAMMO PROCEDURES Final R esult from Last 3 Months or Most Recently Relevant to Health Maintenance Insurance [facility] Care Teams Newsperson Relationship Specialty Start Date End Date Amalia Gunn NP [address] [address] PCP - General Family Medicine 06/16/23 Aft, Latrice Marcum MD PhD [address] [facility] [address] [place] [address] Surgeon Surgical Oncology 01/11/18 Maury Garcia MD [address] [facility] [address] [facility] [address] [place] [address] Consulting Physician Obstetrics and Gynecology 10/15/19 Tiffanie Wooten NP [facility] [address] Nurse Practitioner Medical Oncology 11/29/21
--- OUTSIDE RECORDS SUMMARY | 2024-06-18 07:11 | XMS_ITS | Encounter Summary ---
Author Organization [facility] Address [facility]ly [facility], [facility] [place] [address] Care Team Providers Care Corporate Counselor Name Role Phone Shanika Simon [facility] Primary Care Provider + Gerardo Mayorga MD Unavailable [phone] Non-Staff, Provider Primary Care Provider Tray vidales Encounter Details Date Type Department Care Team (Late st Contact Info) Description 05/06/2022 Stichert Message Enc [facility] Medical [facility] Family & Internal Medicine [address] [address] Shanika Simon [address] [address] Covid Social History Tobacco Use Types Packs/Day Years Used Date Smoking Tobacco: Former Cigarettes 0.3 25 Smokeless Tobacco: Never Comments:Has patch Alcohol Use Standard Drinks/Week Comments Never 0 (1 standard drink = 0.6 oz pur e alcohol) AUDIT-C Answer Date Recorded Frequency of Alcohol Consumption Never 06/07/2019 Average Number of Drinks Not on file 020 Frequency of Binge Drinking Not on file 05/22 PHQ-2 Answer Date Recorded Patient Health Questionnaire-2 Score 0 05/02/2022 Comments No Sex and Gender Information Value Date Recorded Sex Assigned at Not on file Legal Sex Female 4:20 PM CDT Gender Identity Not on file Sexual Orientation Not on file COVID-19 Exposure Response Date Recorded In the last 10 days, have yo u been in contact with someone who was confirmed or suspected to have Coronavirus/COVID-19? No / Unsure 05/02/2022 1:29 PM BLASTING CONTRACT MAN documented as of this encounter Progress Notes * ALEJANDRINA Rodarte - 05/15/2022 11:38 AM CST Please see below. TING CONTRACT MAN * Megan Almendarez MA - 05/06/2022 10:13 AM CST Ok to extend her work note? TING CONTRACT MAN documented in this encounter Plan of Treatment Not on file documented as of this encounter Visit Diagnoses Not on filedocumented in this encounter Care Teams Corporate Counselor Relationship Specialty Start Date End Date Shanika Simon FNP-BC PCP - General Nurse Practitioner Family 04/16/22 Non-Staff, Provider PCP - General UNKNOWN PHYSICIAN SPECIALTY 01/04/23 Gerardo Mayorga MD [address] [place] [id number] CARDIOVASCULAR DISEASE 06/09/22 documented as of this encounter
--- OUTSIDE RECORDS SUMMARY | 2024-06-18 07:11 | XMS_ITS | Clinical Summary ---
Author Organization [facility] [address] Address [address] [place] [address] Care Team Providers Care Billing Assistant Name Role Phone Aft, Latrice Marcum MD PhD Unavailable Maury Garcia MD Unavailable Tiffanie Wooten YARDER BOSS Unavailable [phone] Amalia Gunn NP Primary Care Provider [phone] Allergies Active Allergy Reactions Criticality Noted Date [...] pain 10/14/2019 Coronary artery disease invo lving barrow coronary artery of barrow heart without angina pectoris 05/06/2018 History of breast cancer 03/12/2018 Osteoporosis 02/23/2018 Osteopenia of multiple sites 01/09/2018 Abnormal stress test 01/02/2018 VILLAR (dyspnea on exertion) 12/11/2017 Breast skin changes 08/04/2017 Malignant neoplasm of upper- outer quadrant of left breast in female, estrogen receptor positive 07/16/2017 Cancer Staging:Pathologic stage from 05/22/2017:Stage IA(pT1a(2), pN0(sn), cM0, G2, ER: Positive, [place]: Positive, HER2: Negative) - Signed by Valdez Stauffer MD on 01/11/2018 Clinical: Unsigned Pathologic: Unsigned [facility] (current) use of aromatase inhibitors 07/16/2017 Palpitations [...] Conjugate, Unspecified 01/10/2016 Pneumococcal Polysaccharide PPV23 07/03/2015 Surgical History Surgery Date Site/Laterality Comments HYSTERECTOMY BREAST SURGERY 05/22/2017 CHOLECYSTECTOMY SPINE SURGERY 03/24/2012 - 03/23/2013 BACK SURGERY OOPHORECTOMY COLONOSCOPY BREAST BIOPSY BREAST LUMPECTOMY COLON SURGERY Medical History Medical History Date Comments Diverticulitis Anxiety Breast cancer (HCC) PVC (premature ventricular contraction) 2018 Osteoporosis 09/2017 Diverticulitis Heart disease 2018 Family History Medical History Relation Name Comments Heart attack Brother 1 Romie Hypertension Brother 1 Romie Asthma Father Cheikh Diabetes Father Cheikh Diabetes Mother Tiffanie Heart disease Mother Tiffanie Heart failure Mother Tiffanie Kidney disease Mother Tiffanie Relation Name Status Comments Brother 1 Romie Alive Brother 2 Alive Brother 3 Alive Father Cheikh Alive Mother Tiffanie (Age 74) Sister 1 Alive Sister 2 Alive Social History Tobacco Use Types Packs/Day Years Used Date Smoking Tobacco: Some Days Cigarettes Last attempted to quit: 2017 Smokeless Tobacco: Never Tobacco Cessation:Ready to Q uit: Yes; Counseling Given: Not Answered Alcohol Use Standard Drinks/Week Comments No 0 (1 standard drink = 0.6 oz pur e alcohol) Personal Safety Answer Date Recorded Getting School Help Needed Not on file 04/03 Comments No Sex and Gender Information Value Date Recorded Sex Assigned at Not on file Legal Sex Female 12:01 PM LEGISLATIVE CORRESPONDENT Gender Identity Not on file Sexual Orientation Not on file Obstetrics History Last Filed Vital Signs Vital Sign Reading Time Taken Comments Blood Pressure 110/70 06/16/2023 7:50 AM CDT Pulse 100 06/16/2023 7:50 AM CDT Temperature 37.1 C (98.8 F) 04/30/2022 10:13 AM LEGISLATIVE CORRESPONDENT Respiratory Rate 16 04/30/2022 10:13 AM LEGISLATIVE CORRESPONDENT Oxygen Saturation 95% 06/16/2023 7:50 AM CDT Inhaled Oxygen Concentration - - Weight 67.8 kg (149 lb 6.4 oz) 06/16/2023 7:50 A M CDT Height 160 cm (5' 3 ) 06/16/2023 7:50 AM CDT Body Mass Index 26.47 06/16/2023 7:50 AM CDT Plan of Treatment Health Maintenance Due Date Last Done Comments Colon Cancer Screening-Colonoscopy 1965 Depression Screening 1965 Hepatitis C Screening 1965 DTaP/Tdap/Td Vaccine (1 - Tdap) 06/24/1974 Hepatitis B Screening 06/24/1981 Regular Well Visit/Exam 18-64 06/24/1981 Zoster Vaccine (1 of 2) 06/24/2013 Breast Cancer Screening-Mammogram 03/12/2020 03/12/2019, 03/11/2018, 04/03/2017, Additional history exists Pneumococcal vaccine <65 (3 of 3 - PCV20 or PCV21) 01/09/2021 01/10/2016, 07/03/2015, 04/20/2015 Influenza Vaccine (#1) 2023 3, 04/13/2021, 03/27/2020, Additional history exists Medical Devices Implanted Type Area Sales Representative Health Insurance Device Identifier Shelf Expiration Date Model / Serial / Lot Titanium Neck Plate-10/14/2012 Implanted:10/14 (Quantity not on file) Cervical-Mery mbar Spine Titanium Left Foot Screws- 8 Implanted:10/14 (Quantity not on file) Left: Foot Procedures Procedure Name Priority Date/Time Associated Diagnosis Comments DIAGNOSTIC MAMMOGRAM BILATERAL W GAURANG Schedule Routine, Read Routine (OP Routine) 03/12/2019 10:35 AM LEGISLATIVE CORRESPONDENT Encounter for screening for malignant neoplasm of breast from Last 3 Months or Most Recently Relevant to Health Maintenance Results * Diagnostic Mammogram Bilateral W Gaurang (03/12/2019 10:35 AM LEGISLATIVE CORRESPONDENT) Anatomical Region Laterality Modality Breast Bilateral Mammography 03/12/2019 11:4 5 AM LEGISLATIVE CORRESPONDENT Impressions 03/12/2019 12:12 PM LEGISLATIVE CORRESPONDENT No suspicious abnormality in either breast. Annual diagnostic mammogram is recommended. OVERALL FINAL ASSESSMENT: BI-RADS Category 2: Benign. Annual diagnostic mammography is recommended. Dictated by: Meir Grove M.D. The radiology attending physician has personally reviewed this study, and had reviewed and/or edited this written report and agrees with it. Electronically signed by: BEVERLY DEY MD Narrative 03/12/2019 12:12 PM LEGISLATIVE CORRESPONDENT EXAMINATION: BILATERAL DIGITAL DIAGNOSTIC MAMMOGRAM INCLUDING CAD [...] signed by: BEVERLY DEY MD Vandana Bonner [facility] IMG MAMMO PROCEDURES Final R esult from Last 3 Months or Most Recently Relevant to Health Maintenance Insurance [facility] Care Teams Billing Assistant Relationship Specialty Start Date End Date Amalia Gunn NP [address] [address] PCP - General Family Medicine 06/16/23 Aft, Latrice Marcum MD PhD [address] [place] [address] Surgeon Surgical Oncology 01/11/18 Maury Garcia MD [address] [place] [address] [address] [place] [address] Consulting Physician Obstetrics and Gynecology 10/15/19 Tiffanie Wooten NP [address] [address] Nurse Practitioner Medical Oncology 11/29/21
--- OUTSIDE RECORDS SUMMARY | 2024-06-18 07:11 | XMS_ITS | Encounter Summary ---
Author Organization [facility] Address [address] [place] [address] Care Team Providers Care Operator Prefinish Name Role Phone Shanika Simon [facility] Primary Care Provider + Gerardo Mayorga MD Unavailable [phone] Non-Staff, Provider Primary Care Provider Tray vidales Encounter Details Date Type Department Care Team (Late st Contact Info) Description 04/28/2022 MyCPeakost Message Enc [facility] Medical Group Family & Internal Medicine [address] [address] Shanika Simon [address] [address] Cologuard Social History Tobacco Use Types Packs/Day Years Used Date Smoking Tobacco: Every Day Cigarettes 0.3 25 Smokeless Tobacco: Never Comments:Has patch Alcohol Use Standard Drinks/Week Comments Never 0 (1 standard drink = 0.6 oz pur e alcohol) AUDIT-C Answer Date Recorded Frequency of Alcohol Consumption Never 06/07/2019 Average Number of Drinks Not on file 020 Frequency of Binge Drinking Not on file 05/22 PHQ-2 Answer Date Recorded Patient Health Questionnaire-2 Score 0 05/02/2022 Comments Unknown Sex and Gender Information Value Date Recorded Sex Assigned at Not on file Legal Sex Female 4:20 PM CDT Gender Identity Not on file Sexual Orientation Not on file COVID-19 Exposure Response Date Recorded In the last 10 days, have yo u been in contact with someone who was confirmed or suspected to have Coronavirus/COVID-19? No / Unsure 04/26/2022 2:52 PM SEGREGATOR documented as of this encounter Progress Notes * Marni Philippe RN - 05/02/2022 12:26 PM CST Mammo ordered & faxed EGATOR * ALEJANDRINA Rodarte - 04/30/2022 7:01 PM CST Okay for mammogram order. I am so happy to hear the good news! EGATOR * Lary Chun MA - 04/30/2022 2:34 PM CST FYI. I did place order for Colonoscopy. EGATOR documented in this encounter Plan of Treatment Not on file documented as of this encounter Visit Diagnoses Not on filedocumented in this encounter Care Teams Operator Prefinish Relationship Specialty Start Date End Date Shanika Simon FNP-BC PCP - General Nurse Practitioner Family 04/16/22 Non-Staff, Provider PCP - General UNKNOWN PHYSICIAN SPECIALTY 01/04/23 Gerardo Mayorga MD [address] [place] [id number] CARDIOVASCULAR DISEASE 06/09/22 documented as of this encounter
--- OUTSIDE RECORDS SUMMARY | 2024-06-18 07:11 | XMS_ITS | Encounter Summary ---
Author Organization [facility] Address [facility] [place] [address] Care Team Providers Care Telemetry Technician Name Role Phone Shanika Simon [facility] Primary Care Provider + Gerardo Mayorga MD Unavailable [phone] Non-Staff, Provider Primary Care Provider Tray vidales Encounter Details Date Type Department Care Team (Late st Contact Info) Description 07/13/2022 LiveSafet Message Enc [facility] Medical Group Family & Internal Medicine [address] [address] Shanika Simon [address] [address] Lipid panel Social History Tobacco Use Types Packs/Day Years [...] Date Recorded Patient Health Questionnaire-2 Score 0 05/14/2022 Comments No Sex and Gender Information Value Date Recorded Sex Assigned at Not on file Legal Sex Female 4:20 PM CDT Gender Identity Not on file Sexual Orientation Not on file documented as of this encounter Plan of Treatment Not on file documented as of this encounter Visit Diagnoses Not on filedocumented in this encounter Care Teams Telemetry Technician Relationship Specialty Start Date End Date [facility] PCP - General Nurse Practitioner Family 04/16/22 Non-Staff, Provider PCP - General UNKNOWN PHYSICIAN SPECIALTY 01/04/23 Gerardo Mayorga MD [address] [address] CARDIOVASCULAR DISEASE 06/09/22 documented as of this encounter
--- OUTSIDE RECORDS SUMMARY | 2024-06-18 07:11 | XMS_ITS | Clinical Summary ---
Author Organization [facility] Address [address] [place] [address] Care Team Providers Care Spike Maker Name Role Phone Gerardo Mayorga MD Unavailable [phone] Non-Staff, Provider Primary Care Provider Tray vidales Allergies Active Allergy Reactions Criticality Noted Date Comments Amoxicillin Vomiting Low 06/26/2017 Amoxicillin-Pot Clavulanate Hives 06/07/19 20 Cetirizine Unknown 03/12/2019 Minocycline GI Upset 06/07/2019 Medications anastrozole 1 MG tablet Take 1 mg by mouth daily. Active rosuvastatin 20 MG tablet Take 20 mg by mouth nightly at bedtime. Active vitamin D3, cholecalciferol, 1000 UNIT Tab tablet Take 2 tablets by mouth daily. Active calcium carbonate (OS-LYDIA) 600 MG tablet Take 1,200 mg by mouth daily. Active aspirin EC (ECOTRIN) 81 MG tablet Take 81 mg by mouth daily. Active fluticasone propionate (FLONASE) 50 MCG/ACT nasal sprayIndications :Chronic rhinitis 1 spray by Each Nostril route daily. 48 g 5 04/16/2022 Active azithromycin (ZITHROMAX Z-ERIC) 250 MG tabletIndication s:Acute sinusitis, recurrence not specified, unspecified location Take 2 tablets by mouth on day one then 1 daily for four days. 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) 07/16/2017 Palpitations 06/26/2017 Smoker 06/26/2017 Symptomatic PVCs 06/26/2017 Tachycardia 06/26/2017 Allergic rhinitis 05/09/2017 Invasive carcinoma of breast ([facility]) 0 04/08/2017 Immunizations Name Administration Dates Next Due Fluzone 6 Months+ Quad (0.5 mL Prefilled Syringe) 04/16/2022 Influenza (Generic) 04/11/2017,01/26/2014,2012 Influenza Adult (Generic) 04/13/2021,06/2020,01/15/2019,2017,04/09/2017,04/08/2017,02/13/2015 Pneumococcal (Generic) 01/10/2016 Pneumococcal (Pneumovax 23) 07/03/2015 Pneumococcal (Prevnar 13) 04/20/2015 Social History Tobacco Use Types Packs/Day Years Used Date Smoking Tobacco: Former Cigarettes 0.3 25 Smokeless Tobacco: Never Tobacco Cessation:Counseling Given: No Comments:Has patch Alcohol Use Standard Drinks/Week Comments [...] Sign Reading Time Taken Comments Blood Pressure 138/89 05/14/2022 11:50 AM VENDING ATTENDANT Pulse 95 05/14/2022 11:42 AM VENDING ATTENDANT Temperature 37.2 C (99 F) 05/14/2022 11:42 AM VENDING ATTENDANT Respiratory Rate 12 05/14/2022 11:42 AM VENDING ATTENDANT Oxygen Saturation 97% 05/14/2022 11:42 AM VENDING ATTENDANT Inhaled Oxygen Concentration - - Weight 68 kg (150 lb) 05/14/2022 11:42 AM VENDING ATTENDANT Height 160 cm (5' 3 ) 05/14/2022 11:42 AM VENDING ATTENDANT Body Mass Index 26.57 05/14/2022 11:42 AM VENDING ATTENDANT Plan of Treatment Health Maintenance Due Date Last Done Comments ASCVD LDL 1965 ASCVD Statin 1965 Hepatitis C 06/24/1981 DTaP, Tdap and Td Vaccines (1 - Tdap) 06/24/1982 Zoster Vaccines (1 of 2) 06/24/2013 Colorectal Cancer Screening Colonoscopy (10 Years) 01/21/2021 01/21/2011 Annual Physical 04/16/2023 04/16/2022 RSV Immunization or 60+ Years (1 - Risk 60-74 years 1-dose series) 2023 COVID-19 Vaccine (1 - 2023- season) 2023 Influenza Adult (#1) 2023 04/16/2022, 04/13/2021, 03/27/2020, Additional history exists PHQ-2 (Physician [place]) 03/24/2024 Mammogram Screening 04/19/2024 04/19/2022 Pneumococcal Vaccine: Pediatrics (0 to 5 Years) and At-Risk Patients (6 to 64 Years) (3 of 3 - PPSV23 or PCV20) 06/24/2028 01/10/2016, 07/03/2015, 04/20/2015 Meningococcal B Vaccine Aged Out No l onger eligible based on patient's age to complete this topic Meningococcal Vaccine Aged Out No patrick irineo eligible based on patient's age to complete this topic RSV Immunizations Under 20 Months Aged Out No longer eligible based on patient's age to complete this topic Procedures Procedure Name Priority Date/Time Associated Diagnosis Comments MAMMOGRAM GENERIC (SCAN ORDER) 04/19/2022 COLONOSCOPY GENERIC (SCAN ORDER) 01/21/2011 from Last 3 Months or Most Recently Relevant to Health Maintenance Results * MAMMOGRAM GENERIC (04/19/2022) Anatomical Region Laterality Modality Other 04/19/2022 us [facility] Scanned SCANNING Final Resu lt * COLONOSCOPY GENERIC (01/21/2011) 01/21/2011 us [facility] Scanned SCANNING Final Resu lt from Last 3 Months or Most Recently Relevant to Health Maintenance Insurance [facility] Care Teams Spike Maker Relationship Specialty Start Date End Date Non-Staff, Provider PCP - General UNKNOWN PHYSICIAN SPECIALTY 01/04/23 Gerardo Mayorga MD [address] [address] CARDIOVASCULAR DISEASE 06/09/22
--- OUTSIDE RECORDS SUMMARY | 2024-06-18 07:11 | XMS_ITS ---
Author Organization [facility] [address] Address [address] [place] [address] Care Team Providers Care Efficiency Miner Name Role Phone Aft, Latrice Marcum MD PhD Unavailable [phone] Maury Garcia MD Unavailable Tiffanie Wooten SALES ENGAGEMENT MANAGER Unavailable [phone] Amalia Gunn NP Primary Care Provider [phone] Active Problems Problem Noted Date Diagnosed Date Anxiety disorder 10/14/2019 Diverticular disease 10/14/2019 Mixed hyperlipidemia 10/14/2019 Seasonal allergies 10/14/2019 Shoulder joint pain 10/14/2019 Coronary artery disease invo lving [place] coronary artery of [place] heart without angina pectoris 05/06/2018 History of breast cancer 03/12/2018 Osteoporosis 02/23/2018 Osteopenia of multiple sites 01/09/2018 Abnormal stress test 01/02/2018 VILLAR (dyspnea on exertion) 12/11/2017 Breast skin changes 08/04/2017 Malignant neoplasm of upper- outer quadrant of left breast in female, estrogen receptor positive 07/16/2017 Cancer Staging:Pathologic stage from 05/22/2017:Stage IA(pT1a(2), pN0(sn), cM0, G2, ER: Positive, WV: Positive, HER2: Negative) - Signed by Valdez Stauffer MD on 01/11/2018 Clinical: Unsigned Pathologic: 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 Past Treatment and Therapy Plans Specialty Infusion Treatment Plan Name Start Date Discontinue Date Treatment Medications Discontinue Reason Plan Provider DENOSUMAB (PROLIA) INJECTION 01/20/2018 10/15/2019 No medications scheduled. Financial Valdez Stauffer MD Radiation Treatments * Course C1 L BREAST 2018 07/11/2017 - 07/17/2017 Treatment Period Energy Fraction Dose Fractions Total Dose Plans Planned VR LT BREAST 07/11/2017 - 07/17/2017 385 3,850 Reference Points Delivered LUOQ BREAST 3850 07/11/2017 - 07/17/2017 3,850 Resolved Problems Problem Noted Date Diagnosed Date Resolved Date Dyslipidemia 06/26/2017 05/24/2021
--- OUTSIDE RECORDS SUMMARY | 2024-06-18 07:11 | XMS_ITS | Encounter Summary ---
Author Organization [facility] Address [address] [place] [id number] Care Team Providers Care Animated Cartoons Painter Name Role Phone Shanika Simon [facility] Primary Care Provider + Gerardo Mayorga MD Unavailable Non-Staff, Provider Primary Care Provider Tray vidales Encounter Details Date Type Department Care Team (Late st Contact Info) Description 04/29/2022 Benefittert Message Enc [facility] Family & Internal Medicine [address] [address] [address] Simon [address] [address] Question regarding BONE DENSITY/DEXA Social History Tobacco Use Types Packs/Day Years [...] Coronavirus/COVID-19? No / Unsure 05/02/2022 1:29 PM MOLECULAR PATHOLOGIST documented as of this encounter Progress Notes * ALEJANDRINA Rodarte - 04/30/2022 7:00 PM CST Duplicate message. CULAR PATHOLOGIST * Lary Chun MA - 04/30/2022 10:51 AM CST Please advise? CULAR PATHOLOGIST documented in this encounter Plan of Treatment Not on file documented as of this encounter Visit Diagnoses Not on filedocumented in this encounter Care Teams Animated Cartoons Painter Relationship Specialty Start Date End Date Shanika Simon FNP-BC PCP - General Nurse Practitioner Family 04/16/22 Non-Staff, Provider PCP - General UNKNOWN PHYSICIAN SPECIALTY 01/04/23 Gerardo Mayorga MD [address] [address] CARDIOVASCULAR DISEASE 06/09/22 documented as of this encounter
== END 2024-06-18 07:05 | disposition home or self-care (01) ==
LOC: ANHIMG 07:08
PROVIDERS: PCP Nurse Practitioner Family; Visit Provider Obstetrics & Gynecology
DX: Z12.31 Encounter for screening mammogram for malignant neoplasm of breast (principal)
CPT/HCPCS: 77063; 77067